=== PATIENT | female | born 2000 | race Caucasian/White ===

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

== ENCOUNTER → 2022-07-04 | Outpatient (CLI) | payer BC ==
--- NOTE | 2022-07-05 10:39 | CT ---
EXAMINATION TYPE: CT sinus wo con CT DLP: 660.80 mGycm, Automated exposure control for dose reduction was used. DATE OF EXAM: 07/04/2022 4:46 PM COMPARISON: None. CLINICAL INDICATION:Female, 22 years old with history of J32.9 CHRONIC SINUSITIS, CHRONIC SINUSITIS TECHNIQUE: Multiple thin axial images were obtained through the paranasal sinuses without the use of IV contrast. Additional coronal and sagittal reformatted images were submitted for evaluation. Contrast used: none Oral contrast used: none FINDINGS: Frontal sinuses: Normally developed and aerated. Minimal mucosal thickening noted in the right Fronta l Recess: Clear Modified Collins-Gray Court Score: Right 1 = 1-25% Opacified, Left 0 = 0% Opacified Maxillary Sinuses: Normally developed mild mucosal thickening. Modified Collins-Gray Court Score: Right 1 = 1-25% Opacified, Left 1 = 1-25% Opacified Maxillary Infundibula([facility]): Clear, Modified Bette-Gray Court Score: Right 0 = Completely patent, Left 0 = Completely patent Ethmoid sinuses: Normally developed and aerated. Ethmoidal notch: Unprotected bilateral anterior ethm oidal arteries. Modified Bette-Gray Court Score: Anterior Right 1 = 1-25% Opacified, Left 1 = 1-25% Opacified Posterior Right 1 = 1-25% Opacified, Left 1 = 1-25% Opacified Sphenoid sinuses: Normally developed and aerated. There is sellar sphenoid sinus pneumatization witho ut evidence of dehiscence. No dehiscence of carotid canal. No evidence of optic nerve dehiscence wit hin the sphenoid sinus. No evidence of [place] cells. Sphenoethmoidal recesses: Clear. Modified Bette-Gray Court Score: Right 0 = 0% Opacified, Left 1 = 1-25% Opacified. Nasal septum: Within normal limits.. Nasal Turbinates: Within normal limits. Mastoid air cells & middle ears: The air cells are clear. The middle ears are grossly unremarkable. Modified Soft tissues & Brain: Partially seen without gross abnormality. Globes are intact. Other: Cribriform plate demonstrates symmetric Keros classification type 2 cribriform plate. No evidence of bony dehiscence of skull base. Lamina papyracea is intact without evidence of remote orbital fracture or orbital prolapse into the e thmoid sinus. IMPRESSION: 1. Minimal mucosal sinus disease. 2. The ostiomeatal units, frontonasal and sphenoethmoidal recesses are clear. 3. Opacification burden of 8/54 on the Modified Collins-Lonnie scoring system.
== END | disposition home or self-care (01) ==
LOC: RADCTMAIN 16:28
PROVIDERS: ATTEND Otolaryngology
DX: J32.9 Chronic sinusitis, unspecified (principal); J34.89 Other specified disorders of nose and nasal sinuses
CPT/HCPCS: 70486